=== PATIENT | male | born 1995 | race African-American/Black ===

== ENCOUNTER 2017-06-19 16:08 | Emergency (ER) | payer SELFPAY ==
[2017-06-19 16:51] LABS: Bicarbonate 27 mEq/L (21-31); Glucose Level 125 mg/dL (65-120); Potassium 3.8 mEq/L (3.6-5.0); Sodium Level 138 mEq/L (135-145)
[2017-06-19 16:52] LABS: Absolute Lymphocytes (CBC) 2.1 K/uL (0.7-4.9); Absolute Monocytes 0.6 K/uL (0.1-1.3); Absolute Neutrophil 3.7 K/uL (1.8-8.0); Basophils % 0.3 % (0-1.3); Eosinophils % 2.1 % (0-4.4); Hematocrit 43.3 % (39.6-49.0); Lymphocytes % 32.3 % (15.3-44.8); MCH 30.6 pg (27.0-35.0); MCV 90.5 fL (80-100); MPV 8.2 fL (7.6-11.3); Monocytes % 8.7 % (3.3-12.3); RBC Red Blood Cell Count 4.78 M/uL (4.33-5.43)
[2017-06-19 16:56] LABS: BUN Blood Urea Nitrogen 9 mg/dL (6-20)
[2017-06-19 17:03] LABS: Alcohol Serum/Plasma < 10 mg/dl; Salicylates Level < 4.0 mg/dl (<30)
[2017-06-19 17:22] LABS: Barbiturates NEGATIVE; Benzodiazepines NEGATIVE; Cocaine NEGATIVE; METHAMPHETAM NEGATIVE; Opiates NEGATIVE; Phencyclidine POSITIVE; THC Cannibis POSITIVE
--- NOTE | 2017-06-19 17:23 | ER ---
Nurse's Notes [facility] Name: Xavier Blanchard Age: 21 yrs Sex: Male : 1995 Arrival Date: 06/19/2017 Time: 16:06 Bed 23 Private MD: Diagnosis: Anxiety disorder, unspecified;Abuse of non-psychoactive substances Presentation: 06/19 16:13 Acuity: KAREN 2 dm5 16:20 Presenting complaint: EMS states: bystander called 911 for individual who was screaming ss [place] seemingly upset. EMS reports patient had a cord loosely around neck, but when asked if patient was trying to hurt himself, patient states, "Heck no that was just for my headphones." Denies SI and/or HI. Transition of care: patient was not received from another setting of care. Onset of symptoms was June 19, 2017. Initial Sepsis Screen: Does the patient meet any 2 criteria? No. Patient's initial sepsis screen is negative. Does the patient have a suspected source of infection? No. Patient's initial sepsis screen is negative. Care prior to arrival: None. 16:20 Method Of Arrival: EMS: [facility] ss Triage Assessment: 17:00 General: Appears in no apparent distress. well developed, well nourished, Behavior is rk2 calm, cooperative. Pain: Complains of pain in bilateral leg pain. Neuro: No deficits noted. Level of Consciousness is alert, obeys commands, Oriented to person, place, time, situation. Respiratory: Airway is patent Respiratory effort is even, unlabored, Respiratory pattern is regular, symmetrical, Breath sounds are clear bilaterally. GI: No deficits noted. No signs and/or symptoms were reported involving the gastrointestinal system. Derm: Skin is pink, warm \\T\\ dry. Historical: - Allergies: 16:22 No Known Allergies; ss - Home Meds: 16:22 None [Active]; ss - PMHx: 16:22 None; ss - PSHx: 16:22 foot surgery; Appendectomy; ss - Immunization history:: Adult Immunizations unknown. - Social history:: Smoking status: Patient uses tobacco products, smokes one pack cigarettes per day. Patient/guardian denies using alcohol, street drugs. Screenin:59 Abuse screen: Denies threats or abuse. Nutritional screening: No deficits noted. rk2 Tuberculosis screening: No symptoms or risk factors identified. Fall Risk None identified. Assessment: 17:07 Reassessment: Pt. resting in room \\T\\ this time... appears to be in no obvious distress. rk2 Pt. cooperative, no needs voiced \\T\\ this time. Psych: 17:02 Subjective: Patient's mood is irritable. Objective: Patient is cooperative, Speech is rk2 normal, Affect is appropriate. Interventions: Removed personal items and placed in bag. Patient placed in hospital gown. Searched person for dangerous items. Urine collected and sent for urine drug test. Suicide Risk Assessment: Sad Person Scale: Sex of patient: Male: Score 1 point. Age of patient: Score 1 point if patient 15-34. Safety Checks: Personal items have been removed. Door is open. No visitors are present at this time. Commitment: None. 17:02 Pt denies substance abuse. rk2 Vital Signs: 16:22 BP 138 / 87; Pulse 85; Resp 15; Temp 98.4(O); Pulse Ox 98% on R/A; Weight 86.18 kg; ss Height 5 ft. 9 in. (175.26 cm); Pain 0/10; 17:40 BP 169 / 87; Pulse 88; Resp 16; Pulse Ox 99% on R/A; rk2 16:22 Body Mass Index 28.06 (86.18 kg, 175.26 cm) ED Course: 16:06 Patient arrived in ED. rk2 16:09 Nakia Stallworth [facility]-C [facility]. kb 16:09 Jared Phillips MD is Attending Physician. kb 16:13 Triage completed. dm5 16:22 Arm band placed on right wrist. ss 16:56 Shonda Dumont, JENNIFER is Primary Nurse. rk2 16:59 Patient has correct armband on for positive identification. Placed in gown. Bed in low rk2 position. Call light in reach. 17:49 No provider procedures requiring assistance completed. Patient did not have IV access rk2 during this emergency room visit. Administered Medications: No medications were administered Outcome: 17:23 Discharge ordered by . kb 17:49 Discharged to home ambulatory. rk2 17:49 Condition: good 17:49 Discharge instructions given to patient. 18:01 Patient left the ED. rk2 Signatures: Nakia Stallworth FNP-C FNP-Elena Zofia Zimmer, RN RN dm5 Kristine Ovalles, RN RN ss Shonda Dumont, RN RN rk2
--- NOTE | 2017-06-19 17:23 | EDPHYS ---
Physician Documentation [facility] Name: Xavier Blanchard Age: 21 yrs Sex: Male : 1995 Arrival Date: 06/19/2017 Time: 16:06 Bed 23 Private MD: ED Physician Jared Phillips HPI: 06/19 16:25 This 21 yrs old Black Male presents to ER via EMS with complaints of Anxiety. kb 16:25 The patient presents to the emergency department with anxiety, over family "stuff". kb Onset: The symptoms/episode began/occurred today. Past psychiatric history: Prior diagnosis: depression, anxiety. Associated signs and symptoms: Pertinent positives; "stressed out". Severity of symptoms: At their worst the symptoms were moderate in the emergency department the symptoms are unchanged. The patient has experienced similar episodes in the past. The patient has not recently seen a physician. Pt states he was at the park to just get away for a little while and chill. States he has been under a lot of stress and needed to get out of the house. EMS reports pt was yelling at the park and had a cord around his neck so they were called to check on him. Pt denies suicidal or homicidal ideations. States he doesn't want to hurt or kill himself. . Historical: - Allergies: 16:22 No Known Allergies; ss - Home Meds: 16:22 None [Active]; ss - PMHx: 16:22 None; ss - PSHx: 16:22 foot surgery; Appendectomy; ss - Immunization history:: Adult Immunizations unknown. - Social history:: Smoking status: Patient uses tobacco products, smokes one pack cigarettes per day. Patient/guardian denies using alcohol, street drugs. ROS: 16:29 Constitutional: Negative for fever, chills, and weight loss, ENT: Negative for injury, kb pain, and discharge, Neck: Negative for injury, pain, and swelling, Cardiovascular: Negative for chest pain, palpitations, and edema, Respiratory: Negative for shortness of breath, cough, wheezing, and pleuritic chest pain, Abdomen/GI: Negative for abdominal pain, nausea, vomiting, diarrhea, and constipation, MS/Extremity: Negative for injury and deformity, Skin: Negative for injury, rash, and discoloration, Neuro: Negative for headache, weakness, numbness, tingling, and seizure. 16:29 Psych: Positive for anxiety, Negative for depression, drug dependence, alcohol dependence, auditory hallucinations, visual hallucinations, homicidal ideation, insomnia, suicide gesture, suicidal ideation. Exam: 16:29 Constitutional: This is a well developed, well nourished patient who is awake, alert, kb and in no acute distress. Head/Face: Normocephalic, atraumatic. ENT: Nares patent. No nasal discharge, no septal abnormalities noted. Tympanic membranes are normal and external auditory canals are clear. Oropharynx with no redness, swelling, or masses, exudates, or evidence of obstruction, uvula midline. Mucous membranes moist. Neck: Trachea midline, no thyromegaly or masses palpated, and no cervical lymphadenopathy. Supple, full range of motion without nuchal rigidity, or vertebral point tenderness. No Meningismus. Chest/axilla: Normal chest wall appearance and motion. Nontender with no deformity. No lesions are appreciated. Cardiovascular: Regular rate and rhythm with a normal S1 and S2. No gallops, murmurs, or rubs. Normal PMI, no JVD. No pulse deficits. Respiratory: Lungs have equal breath sounds bilaterally, clear to auscultation and percussion. No rales, rhonchi or wheezes noted. No increased work of breathing, no retractions or nasal flaring. Abdomen/GI: Soft, non-tender, with normal bowel sounds. No distension or tympany. No guarding or rebound. No evidence of tenderness throughout. Back: No spinal tenderness. No costovertebral tenderness. Full range of motion. Skin: Warm, dry with normal turgor. Normal color with no rashes, no lesions, and no evidence of cellulitis. MS/ Extremity: Pulses equal, no cyanosis. Neurovascular intact. Full, normal range of motion. Neuro: Awake and alert, GCS 15, oriented to person, place, time, and situation. Cranial nerves II-XII grossly intact. Motor strength 5/5 in all extremities. Sensory grossly intact. Cerebellar exam normal. Normal gait. 16:29 Psych: Behavior/mood is pleasant, cooperative, Affect is calm, Oriented to person, place, time, Patient has no thoughts/intents to harm self or others. Judgement / Insight is normal. Memory is normal. Delusions/hallucinations are not present. . Vital Signs: 16:22 BP 138 / 87; Pulse 85; Resp 15; Temp 98.4(O); Pulse Ox 98% on R/A; Weight 86.18 kg; ss Height 5 ft. 9 in. (175.26 cm); Pain 0/10; 17:40 BP 169 / 87; Pulse 88; Resp 16; Pulse Ox 99% on R/A; rk2 16:22 Body Mass Index 28.06 (86.18 kg, 175.26 cm) ss MDM: 16:09 Patient medically screened. kb 16:29 Data reviewed: vital signs, nurses notes. Data interpreted: Pulse oximetry: on room air kb is 98 %. Interpretation: normal. 17:23 Counseling: I had a detailed discussion with the patient and/or guardian regarding: the kb historical points, exam findings, and any diagnostic results supporting the discharge/admit diagnosis, lab results, the need for outpatient follow up, a family practitioner, to return to the emergency department if symptoms worsen or persist or if there are any questions or concerns that arise at home. 06/19 16:23 Order name: Acetaminophen; Complete Time: 17:04 kb 06/19 16:23 Order name: Basic Metabolic Panel; Complete Time: 17:04 kb 06/19 16:23 Order name: CBC with Diff; Complete Time: 16:57 kb 06/19 16:23 Order name: ETOH Level; Complete Time: 17:04 kb 06/19 16:23 Order name: Salicylate; Complete Time: 17:04 kb 06/19 16:23 Order name: Urine Drug Screen; Complete Time: 17:22 kb 06/19 16:23 Order name: IV Saline Lock; Complete Time: 16:57 kb 06/19 16:23 Order name: Labs collected and sent; Complete Time: 16:57 kb 06/19 16:23 Order name: Urine Dipstick-Ancillary (obtain specimen); Complete Time: 17:15 kb 06/19 17:18 Order name: Urine Dipstick--Ancillary (enter results); Complete Time: 17:34 bd 06/19 17:32 Order name: EKG Electrocardiogram EDMS Administered Medications: No medications were administered Disposition: 06/19/17 17:23 Discharged to Home. Impression: Anxiety disorder, unspecified, Abuse of non-psychoactive substances. - Condition is Stable. - Discharge Instructions: Alcohol and Drug Addiction, Finding Treatment, Generalized Anxiety Disorder. - Medication Reconciliation Form, Thank You Letter, Antibiotic Education, Prescription Opioid Use form. - Follow up: Emergency Department; When: As needed; Reason: Worsening of condition. Follow up: Private Physician; When: 2 - 3 days; Reason: Recheck today's complaints, Continuance of care, Re-evaluation by your physician. Addendum: 06/23/2017 19:13 Co-signature as Attending Physician, Jared Phillips MD. g s Signatures: Dispatcher [employer] EDMS Nakia Stallworth, WAREHOUSE WORKER 2ND SHIFT-C WAREHOUSE WORKER 2ND SHIFT-CkKristine Vazquez RN RN ss Jared Phillips MD MD Shonda Dumont RN RN rk2 Corrections: (The following items were deleted from the chart) 06/19 17:25 17:23 06/19/2017 17:23 Discharged to Home. Impression: Anxiety disorder, unspecified. kb Condition is Stable. Forms are Medication Reconciliation Form, Thank You Letter, Antibiotic Education, Prescription Opioid Use. Follow up: Emergency Department; When: As needed; Reason: Worsening of condition. Follow up: Private Physician; When: 2 - 3 days; Reason: Recheck today's complaints, Continuance of care, Re-evaluation by your physician. kb 18:01 17:25 06/19/2017 17:23 Discharged to Home. Impression: Anxiety disorder, unspecified; rk2 Abuse of non-psychoactive substances. Condition is Stable. Discharge Instructions: Generalized Anxiety Disorder. Forms are Medication Reconciliation Form, Thank You Letter, Antibiotic Education, Prescription Opioid Use. Follow up: Emergency Department; When: As needed; Reason: Worsening of condition. Follow up: Private Physician; When: 2 - 3 days; Reason: Recheck today's complaints, Continuance of care, Re-evaluation by your physician. kb
[2017-06-19 17:28] LABS: Urine Blood NEGATIVE (NEG); Urine Glucose NEGATIVE (NEG); Urine Protein NEGATIVE (NEG); Urine pH 5.5 (5.0-7.0)
--- NOTE | 2017-06-19 21:25 | EKG ---
Test Date: 2017-06-19 Test Time: 16:22:42 Finishing Area Supervisor: KRIS MEASUREMENT RESULTS: Intervals: Rate: 79 MA: 156 QRSD: 82 QT: 354 QTc: 405 Gilbert: P: 32 MA: 156 QRS: 47 T: 57 INTERPRETIVE STATEMENTS: Normal sinus rhythm Normal ECG Compared to ECG 06/11/2014 01:22:34 Early repolarization no longer present Electronically Signed On 06-19-17 21:24:13 CDT by Gwyn Waggoner
== END 2017-06-19 18:01 | disposition home or self-care (01) ==
LOC: ER 16:08
DX: F41.9 Anxiety disorder, unspecified (principal); F55.8 Abuse of other non-psychoactive substances; F17.210 Nicotine dependence, cigarettes, uncomplicated
CPT/HCPCS: 36415; 80048; 80307; 80320; 80329; 81003; 85025; 93005; 99283